=== PATIENT | female | born 1980 | race African-American/Black ===

== ENCOUNTER 2020-04-14 08:45 | Outpatient (CLI) | payer BC, SELFPAY ==
--- NOTE | 2020-04-14 09:03 | ECG_ITS ---
Measurements Intervals Siren Rate: 79 P: 13 AL: 138 QRS: -9 QRSD: 98 T: 4 QT: 390 QTc: 448 Interpretive Statements SINUS RHYTHM VOLTAGE CRITERIA FOR LVH BORDERLINE T WAVE ABNORMALITY- INFERIOR LEADS BORDERLINE ECG Electronically Signed On 04-14-2020 13:13:19 CDT by Rene Murguia D.O.
[2020-04-14 09:27] LABS: Blood Urea Nitrogen 9 mg/dL (7-17); Calcium 8.7 mg/dL (8.4-10.2); Carbon Dioxide 26 mmol/L (22-30); Chloride 103 mmol/L (98-107); Estimated Glomerular Filt Rate > 60; Glucose 130 mg/dL (65-105); Potassium 3.8 mmol/L (3.4-5.0); Sodium 136 mmol/L (137-145)
== END 2020-04-14 08:46 | disposition home or self-care (01) ==
PROVIDERS: PCP Internal Medicine; Visit Provider Anesthesiology
DX: E11.9 Type 2 diabetes mellitus without complications (principal)
CPT/HCPCS: 36415; 80048; 93005

== ENCOUNTER 2020-04-24 00:50 | Outpatient (CLI) | payer BC, SELFPAY ==
[2020-04-24 19:16] LABS: SARS-CoV-2 RNA PCR Negative
== END 2020-04-24 00:51 | disposition home or self-care (01) ==
LOC: ANHCOVIDDT 00:51
PROVIDERS: PCP Internal Medicine; Visit Provider Surgery Plastic and Reconstructive Surgery
DX: Z01.818 Encounter for other preprocedural examination (principal); Z11.59 Encounter for screening for other viral diseases
CPT/HCPCS: 87635; C9803; U0003

== ENCOUNTER 2020-04-26 01:15 | Day surgery (SDC) | payer BC, SELFPAY ==
[2020-04-13 12:25] VITALS: BMI 36.8
--- NOTE | 2020-04-25 14:08 | WPDANESEPP ---
Anes - Eval Pre Procedure Procedure: Operation Date: 04/26/20 07:30 Proposed Procedures p Bilateral Breast Reduction - Dakota Farrell MD Date/Time: 04/25/20 14:08 Pre Op Diagnosis: macromastia Patient Data Age: 39 Gender: F Height: 5 ft 3 in Weight: 94.35 kg Allergies Allergy/AdvReac Type Severity Reaction Status Date / Time egg Allergy Unknown Itching Verified 04/13/20 12:25 Home Medications Medication Instructions Recorded Confirmed Type lisinopril 5 mg PO DAILY 10/02/19 04/13/20 History metformin 500 mg PO BID 10/02/19 04/13/20 History omeprazole 20 mg PO DAILY PRN 10/02/19 04/13/20 History hydrocodone 5 mg-acetaminophen 325 1 tablet PO Q6H PRN #15 tablet 04/18/20 04/18/20 Rx mg tablet ondansetron HCl 4 mg tablet 4 mg PO Q6H PRN #30 tablet 04/18/20 Rx Patient hx anesthesia problems: none Family hx anesthesia problems: none PMFSH Past Medical History Medical History (Updated 04/25/20 @ 14:09 by Kun Kincaid CRNA) Chronic back pain Chronic neck pain Hypertension Intertrigo Macromastia Obesity Type 2 diabetes mellitus Surgical History Surgical History H/O dilation and curettage Social History Social History Smoking status: Never smoker Alcohol intake: never Gender identity (if verbalized by the patient): Female Comments VR 79 SINUS RHYTHM VOLTAGE CRITERIA FOR LVH BORDERLINE T WAVE ABNORMALITY- INFERIOR LEADS BORDERLINE ECG Exam Day of Procedure 04/25/20 14:08 Patient weight: obese
[2020-04-26] VITALS (11 sets, daily range): BP systolic 101–138; BP diastolic 62–91; PULSE 76–98; RESP 14–18; TEMP 35.9–37; O2SAT 95–100
[2020-04-26] MEDS: LACTATED RINGERS 1,000 ML 30 ML IV CONT ×2 (06:45→10:19)
[2020-04-26 06:48] LABS: Glucose Point of Care 177 (65-105)
--- NOTE | 2020-04-26 06:49 | WPDHPUPDATE1 ---
History and Physical Update Update Date/Time: 04/26/20 06:49 History and Physical has been reviewed, including an updated exam of the patient. There are NO changes in the patient's condition. Risks, benefits, and alternatives have been discussed and questions answered. Patient agrees to proceed with procedure.
--- NOTE | 2020-04-26 06:50 | WPDANESEPPF ---
Anes - Initial Pre Proc Eval Procedure: Operation Date: 04/26/20 07:30 Proposed Procedures p Bilateral Breast Reduction - Dakota Farrell MD Date/Time: 04/26/20 06:50 Surgeon: Dakota Farrell MD Pre Op Diagnosis: macromastia Patient Data Age: 39 Gender: F Height: 5 ft 3 in Weight: 94.35 kg Allergies Allergy/AdvReac Type Severity Reaction Status Date / Time egg Allergy Unknown Itching Verified 04/13/20 12:25 Home Medications Medication Instructions Recorded Confirmed Type lisinopril 5 mg PO DAILY 10/02/19 04/13/20 History metformin 500 mg PO BID 10/02/19 04/13/20 History omeprazole 20 mg PO DAILY PRN 10/02/19 04/13/20 History hydrocodone 5 mg-acetaminophen 325 1 tablet PO Q6H PRN #15 tablet 04/18/20 04/18/20 Rx mg tablet ondansetron HCl 4 mg tablet 4 mg PO Q6H PRN #30 tablet 04/18/20 Rx Laboratory Tests 04/26/20 04/26/20 06:20 06:45 POC Capillary Glucose 177 mg/dl H mg/dl (65-105) Cotinine Pending Patient hx anesthesia problems: none Family hx anesthesia problems: none PMFSH Past Medical History Medical History Chronic back pain Chronic neck pain Hypertension Intertrigo Macromastia Obesity Type 2 diabetes mellitus Surgical History Surgical History H/O dilation and curettage Social History Social History Smoking status: Never smoker Alcohol intake: never Gender identity (if verbalized by the patient): Female Anes - Eval Final PreProcedure Day of Procedure 04/26/20 06:50 Patient weight: morbidly obese Heart: regular rate and rhythm Lungs: clear to auscultation Airway: Mallampati scale class II Neurological: alert and oriented Last oral intake: >/= 8 hours ASA classification: III Emergent: no Anesthetic plan: proceed Anesthesia type and monitoring: general ETT and standard monitoring Informed Consent: The patient's anesthetic plan and its attendant risks and benefits were discussed with the patient/family/POA. Questions were solicited and answers provided to the satisfaction of the patient/family/POA.
[2020-04-26 06:51] LABS: Urine Cotinine NEGATIVE
[2020-04-26] MEDS: ceFAZolin 2 GM/D5W 50 ML 2 GM/50 ML BAG IVPB (07:26)
--- NOTE | 2020-04-26 10:25 | PM.PROC ---
Procedure Note - Detailed Date of procedure: 04/26/20 Pre-op diagnosis: macromastia Post-op diagnosis: same Procedure performed: Bilateral breast reduction Description of procedure: She is here today for bilateral breast reduction. Previously and again today the risks, benefits, alternatives were discussed in extensive detail. I wanted her to be very realistic about the risks involved as well as expectations. We discussed aftercare and what to monitor for. She understands we can never guarantee final breast size and there will always be asymmetry. I was very upfront and honest about the risks of sensation change and even nipple loss (). Made sure answered all of her questions to her satisfaction today and consent was obtained. She was marked in the preoperative holding area with their verification. The patient was taken to the operating room placed supine on the operating table. Anesthesia was provided by anesthesiology. She was prepped and draped in a standard sterile fashion. A surgical time-out was taken. Stab incisions were made and I tumessed with a tumescent solution. I marked out the nipple-areolar complex at 42 mm. I then de-epithelialized the pedicle. The pedicle was well left well more than 2 cm in thickness. I then removed the inferior portion of the breast as well as the central keel to get shape based on preoperative planning. At this point copiously irrigated with saline solution and verified a strict hemostasis. I reapproximated the pillars using a 2-0 PDS as well as along the IMF. I tailor tacked the breast into place with maría. Laterally she had slight asymmetry which was treated with 4mm basket cannula using S.A.F.E. technique with suction lipectomy. This was minimal volume. She was placed in a sitting position. I verified the nipple-areolar complex position based on preoperative markings, intraoperative measurements, and observation which were in full agreement. This nipple-areolar complex was marked at 42 mm in size. I then placed supine and de-epithelialized this. Nipple-areolar complex was inset with 3-0 Monocryl. I closed the vertical incision with 3-0 Monocryl in the IMF with 3-0 stratafix. Then everything was closed using a running subcuticular 4-0 Monocryl followed by Steri-Strips. A dressing was placed followed by surgical bra. Patient was awoke and taken to PACU without difficulty. All instrument sponge counts were correct at the end of the case. Anesthesia: GLMA Surgeon: Dakota Farrell MD Estimated blood loss (mL): 20 Drains: No Packing: No Pathology: yes Complications: No immediate complications Condition: stable Disposition: PACU Findings: Bilateral inverted T reduction mammaplasty. Superior medial pedicle. Tissue removed- R: 968.2 grams L: 1276.3 grams
[2020-04-26 10:35] LABS: Glucose Point of Care 190 (65-105)
--- NOTE | 2020-04-26 10:56 | SUR.PREOP ---
0730: PT TEXTED MOTHER TO MAKE AWARE SHE IS GOING INTO SURGERY
== END 2020-04-26 13:00 | disposition home or self-care (01) ==
PROVIDERS: PCP Internal Medicine; Visit Provider Surgery Plastic and Reconstructive Surgery
PROC: 0HBV0ZZ Excision of Bilateral Breast, Open Approach (ICD-10-PCS; CPT 19318; principal; 2020-04-26 07:30)
DX: N62 Hypertrophy of breast (principal); N60.12 Diffuse cystic mastopathy of left breast; N60.11 Diffuse cystic mastopathy of right breast; I10 Essential (primary) hypertension; E11.9 Type 2 diabetes mellitus without complications; E66.9 Obesity, unspecified; Z68.36 Body mass index [BMI] 36.0-36.9, adult; Z79.84 Long term (current) use of oral hypoglycemic drugs; Z79.899 Other long term (current) drug therapy
CPT/HCPCS: 19318; 36415; 80307; 87635; 88305; A9270; C9803; J0131; J0171; J0690; J1100; J1170; J2250; J2370; J2405; J2704; J2710; J3010; J7120; U0003

== ENCOUNTER 2021-02-15 08:05 | Outpatient (CLI) | payer BC, SELFPAY ==
--- NOTE | ~2021-02-15 | US_ITS ---
EXAMINATION: US pelvic complete w TV DATE: 02/15/2021 09:03 INDICATION: Pelvic pain Comparison:No prior studies for comparison. TECHNIQUE: Multiple transabdominal and endovaginal sonographic images of the pelvis performed. FINDINGS: The uterus measures 10.6 x 2.9 x 5 cm. There is a hypoechoic mass posterior margin of the u terus measuring 2.7 x 1.9 x 2.3 cm, compatible with fibroid. The endometrial complex measures 7 mm. The right ovary measures 4.3 x 2.9 x 3.9 cm and the left ovary measures 3.3 x 2.9 x 3.2 cm. There ar e small follicles in each ovary. Normal doppler signal in both ovaries. There is no free fluid in the pelvis. There are no abnormal masses seen on either side. IMPRESSION: 1. Hypoechoic uterine mass posteriorly measuring up to 2.7 cm, compatible with fibroid. Reviewed, dictated and finalized at location B.
--- NOTE | ~2021-02-15 | US_ITS ---
US right upper quadrant INDICATION: Elevated liver enzymes. Abdomen pain. PROCEDURE: Realtime right upper abdominal ultrasound. COMPARISON: No prior studies for comparison. FINDINGS: The pancreas is normal without focal mass or pancreatic ductal dilation. Liver echotexture is increased, consistent with fatty infiltration. There is normal directional flow in the portal ve in. The gallbladder is normal without stones, gallbladder wall thickening or pericholecystic fluid. Comm on bile duct measures 3 mm. No sonographic Mcmillan's sign. IMPRESSION: 1: Hepatic steatosis. Reviewed, dictated and finalized at location B. IMPRESSION: 1: Hepatic steatosis.
--- NOTE | ~2021-02-15 | US_ITS ---
EXAMINATION: US thyroid DATE: 02/15/2021 09:03 INDICATION: Thyroid nodule. TECHNIQUE: Multiple ultrasound images of the thyroid were obtained. COMPARISON: None. FINDINGS: The right thyroid lobe measures 7.0 x 1.8 x 1.8 cm. The left thyroid lobe measures 5.6 x 2.1 x 2.0 c m. In the left thyroid lobe, there is a 2.1 cm solid, hypoechoic, [id number]-[id number] nodule with smooth margin without echogenic foci (TI-RADS TR4). In the left thyroid lobe, there is a 10 mm solid, hypoe choic, gqnyc-uvak-[id number] nodule with ill-defined margin without echogenic foci (TR4). IMPRESSION: 1. Left thyroid nodules. By report, the patient has been imaged elsewhere with a previous benign biop sy. Comparison with prior imaging is recommended. Ultrasound-guided fine-needle aspiration of the 2.1 cm nodule is recommended unless it is stable from the time of prior biopsy. Follow up ultrasound of the 10 mm nodule in one year is recommended unless it has been stable for 5 years. Reviewed, dictated and finalized at location A. IMPRESSION: 1. Left thyroid nodules. By report, the patient has been imaged elsewhere with a previous benign biopsy. Comparison with prior imaging is recommended. Ultraso und-guided fine-needle aspiration of the 2.1 cm nodule is recommended unless it is stable from the time of prior biopsy. Follow up ultrasound of the 10 mm nod ule in one year is recommended unless it has been stable for 5 years.
== END 2021-02-15 08:06 ==
PROVIDERS: PCP Internal Medicine; Visit Provider Internal Medicine
DX: R74.8 Abnormal levels of other serum enzymes (principal); R10.2 Pelvic and perineal pain; E04.2 Nontoxic multinodular goiter; K76.0 Fatty (change of) liver, not elsewhere classified
CPT/HCPCS: 76536; 76705; 76830; 76856

== ENCOUNTER 2021-03-25 13:09 | Outpatient (CLI) | payer BC, SELFPAY ==
--- NOTE | ~2021-03-25 | US_ITS ---
EXAMINATION: US FNA w image guidance DATE: 03/25/2021 14:00 INDICATION: Left thyroid nodule. TECHNIQUE: The procedure and its benefits and risks were discussed with the patient. Risks specifically discusse d included bleeding. The patient verbalized understanding of the risks and agreed to proceed. The nec k was prepped and draped in the usual sterile manner. 1% lidocaine was used for local anesthesia. 5 passes were made with a 25G needle into the lesion under ultrasound guidance. There were no immedia te complications. The patient understood to call the ordering physician for results after a week and a half and verbalized that understanding. FINDINGS: Grayscale ultrasound images demonstrate needles advanced into a 1.8 cm left thyroid nodule for biopsy . IMPRESSION: 1. Ultrasound-guided fine needle aspiration of a left thyroid nodule. Reviewed, dictated and finalized at location A.
== END 2021-03-25 13:10 | disposition home or self-care (01) ==
PROVIDERS: PCP Internal Medicine; Visit Provider Otolaryngology
DX: E04.1 Nontoxic single thyroid nodule (principal)
CPT/HCPCS: 10005; 88173; 88305

== ENCOUNTER 2021-09-21 03:01 | Emergency (ER) | payer BC, SELFPAY ==
[2021-09-21 03:11] VITALS: BP 192/111; PULSE 118; RESP 18; TEMP 35.8; O2SAT 100
[2021-09-21 06:39] LABS: Add Urine Microscopic? YES; Appearance Urine Cloudy (Clear); Bacteria Urine Trace /hpf; Bilirubin Urine Negative (Negative); Blood Urine 1+ (Negative); Color Urine Yellow (Yellow); Glucose Urine UA 3+ mg/dL (Negative); Ketones Urine Trace mg/dL (Negative); Leukocyte Esterase Ur 2+ LEU/UL (Negative); Mucus Urine Rare /lpf; Nitrate Urine Negative (Negative); Protein Urine Negative (Negative); Squamous Epithelial Cell Urine Many /hpf (Few); Urobilinogen Urine Negative mg/dL (<2.0); WBC Urine 16-20 /hpf
--- NOTE | 2021-09-21 06:39 | ED.FEMALEGU ---
HPI - Female Genitourinary General Chief complaint: Urogenital-Female Stated complaint: urinary symptoms Time Seen by Provider: 09/21/21 05:14 Source: patient History of Present Illness HPI Narrative: Patient presents with vaginal itching and irritation. Symptoms been present for the past 2 days getting progressively worse. Reports similar episode approximately 1 year ago was given a cream and they resolve the issue. She denies new sexual partner she denies recent antibiotics. She denies any urinary symptoms at the time of my evaluation she denies any abdominal pain diarrhea, nausea, vomiting, fevers. Related Data Home Medications Medication Instructions Recorded Confirmed lisinopril 5 mg PO DAILY 10/02/19 04/26/20 metformin 500 mg PO BID 10/02/19 04/26/20 omeprazole 20 mg PO DAILY PRN 10/02/19 04/26/20 Allergies Allergy/AdvReac Type Severity Reaction Status Date / Time egg Allergy Unknown Itching Verified 09/21/21 04:59 Review of Systems Review of Systems: CONSTITUTIONAL: Denies fever, chills, or sweats. EYES: Denies visual changes, redness, or discharge. ENT: Denies rhinorrhea, congestion, sore throat, or otalgia. CARDIOVASCULAR: Denies chest pain, palpitations, or edema. RESPIRATORY: Denies cough or dyspnea. GASTROINTESTINAL: Denies abdominal pain, nausea, vomiting, or diarrhea. GENITOURINARY: Denies dysuria or hematuria. SKIN: Denies rash or itching. MUSCULOSKELETAL: Denies back pain, joint pain, or myalgia. NEUROLOGIC: Denies headache, numbness, dizziness, or weakness. PSYCHIATRIC: Denies anxiety or depression. All systems reviewed & are unremarkable except as noted in HPI and below PMFSH Past Medical History Medical History (Updated 09/21/21 @ 06:45 by Freddie Cho MD) Chronic back pain Chronic neck pain Hypertension Intertrigo Macromastia Obesity Type 2 diabetes mellitus Surgical History Surgical History H/O dilation and curettage Social History Social History Smoking status: Never smoker Alcohol intake: never Gender identity (if verbalized by the patient): Female Exam Narrative: GENERAL: Well-appearing, well-nourished, and in no acute distress. HEAD: Normocephalic, atraumatic. EYES: PERRLA and EOMI. ENT: Nares clear, no rhinorrhea or epistaxis. Mucous membranes moist. NECK: Supple. No masses. No JVD CHEST: Clear to auscultation. No respiratory distress. No wheezes rales or rhonchi HEART: Regular rate and rhythm. No murmur heard. Normal peripheral pulses. ABDOMEN: Soft, nontender, nondistended, normal active bowel sounds. 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 Speculum exam with moderate white thick discharge EXTREMITIES: Normal range of motion. No edema. SKIN: Warm, dry, no rash. NEURO: No focal deficits. Alert and oriented x3. PSYCH: Normal mood and affect. Course Vital Signs Vital signs: Vital Signs Temperature 35.8 C L 09/21/21 03:11 Pulse Rate 118 H 09/21/21 03:11 Respiratory Rate 18 09/21/21 03:11 Blood Pressure 192/111 H 09/21/21 03:11 Pulse Oximetry 100 09/21/21 03:11 Temperature 35.8 C L 09/21/21 03:11 Pulse Rate 83 09/21/21 06:57 Respiratory Rate 16 09/21/21 06:57 Blood Pressure 133/99 H 09/21/21 06:57 Pulse Oximetry 100 09/21/21 06:57 MDM - Female Genitourinary MDM Narrative Medical decision making narrative: H&P as above, vss, pt looks clinically well, exam with moderate vaginal discharge, labs with UA contaminated additional labs pending,additional labs/img considered, symptomatic relief available as needed, on reevaluation pt continues to looks clinically well. Suspect either bacterial vaginosis or yeast infection based on exam, dns gonorrhea, committee, necrotizing soft tissue infection. UA was dirty however is likel
[2021-09-21 06:40] LABS: Specific Grav Ur 1.039 (1.001-1.035)
[2021-09-21 06:57] VITALS: BP 133/99; PULSE 83; RESP 16; O2SAT 100
== END 2021-09-21 06:58 | disposition home or self-care (01) ==
PROVIDERS: Emergency Provider Emergency Medicine; PCP Internal Medicine
DX: N89.8 Other specified noninflammatory disorders of vagina (principal); E11.9 Type 2 diabetes mellitus without complications; I10 Essential (primary) hypertension; E66.9 Obesity, unspecified; Z68.34 Body mass index [BMI] 34.0-34.9, adult; Z79.84 Long term (current) use of oral hypoglycemic drugs
CPT/HCPCS: 81001; 81025; 87070; 87077; 87086; 87088; 87491; 87591; 87808; 99284

== ENCOUNTER 2022-09-12 11:12 | Emergency (ER) | payer BC, OTHER, SELFPAY ==
--- NOTE | ~2022-09-12 | CT_ITS ---
EXAMINATION: CT abdomen pelvis w con DATE: 09/12/2022 15:59 INDICATION: Abnormal fibroid on ultrasound TECHNIQUE: Computed tomography (CT) of the abdomen and pelvis was performed with 100 mL Omnipaque-350 intravenous contrast. Automated exposure control and iterative reconstruction technique were employe d. The dose-length product was 601.44 mGy-cm. COMPARISON: Ultrasound dated 09/12/2022 FINDINGS: Lung bases are clear. Heart size is normal. No pericardial or pleural effusion. Liver, gallbladder, p ancreas, spleen, bilateral adrenal glands and kidneys are normal. Bowels including the appendix are n ormal. Small fat-containing umbilical hernia. 5.1 x 3.3 x 3.5 cm heterogeneously enhancing subserosal fibroid arising from the posterior body of the uterus. 2.2 cm right ovarian cyst/follicle. Partially decompressed bladder is unremarkable. No free intraperitoneal gas or fluid. No pathologically enlarg ed abdominal or pelvic lymphadenopathy. 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 IMPRESSION: 1. No acute intra-abdominal/pelvic process. 2. 5.1 x 3.3 x 3.5 cm subserosal fibroid arising from the posterior body of the uterus. Reviewed, dictated and finalized at location A. 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
--- NOTE | ~2022-09-12 | US_ITS ---
US pelvic complete w TV DATE: 09/12/2022 13:57 INDICATION: Pelvic pain. Hematuria versus vaginal bleeding. TECHNIQUE: Real-time imaging via transabdominal and transvaginal approaches COMPARISON: 02/15/2021 pelvic ultrasound examination FINDINGS: The uterus measures approximately 9.2 cm height, 4.2 cm AP and 5.2 cm transverse dimension. Central endometrial echo measures up to 11 mm AP dimension. There is a heterogeneous circumscribed mass at the posterior aspect of the body of the uterus, measur ing up to 5.3 x 2.9 x 2.7 cm, which may be a serosal fibroid. Consider CT abdomen pelvis for more opt imal evaluation. Cervical nabothian cysts are noted, measuring up to 7 x 7 mm. Right ovary measures 4.2 x 3.8 x 4.2 cm, with vascular flow. There is a 1.6 x 2.[address] ovarian [address]. Left ovary measures 3.8 x 2.8 x 3.9 cm, with vascular flow. No free pelvic fluid collection is detected. IMPRESSION: Circumscribed mass in posterior aspect of body of uterus measuring up to 5.3 x 2.9 x 2.7 cm, possibly a serosal fibroid. This is increased in size compared to. Consider CT abdomen pe lvis for further evaluation Central endometrial echo complex measures up to 11 mm AP dimension 1.6 x 2.5 cm right ovarian cyst Reviewed, dictated and finalized at Location A. Reviewed, dictated and finalized at location A. IMPRESSION: Circumscribed mass in posterior aspect of body of uterus measuring up to 5.3 x 2.9 x 2.7 cm, possibly a serosal fibroid. This is increased in size compared to. Consider CT abdomen pelvis for further evaluation Central endometrial echo complex measures up to 11 mm AP dimension 1.6 x 2.5 cm right ovarian cyst
[2022-09-12 11:37] VITALS: BP 137/97; PULSE 103; RESP 18; TEMP 36.6; O2SAT 100
[2022-09-12 12:10] LABS: Add Urine Microscopic? YES; Appearance Urine Cloudy (Clear); Blood Urine 3+ (Negative); Color Urine Red (Yellow); Leukocyte Esterase Ur 3+ LEU/UL (Negative); Nitrate Urine Unable to determine (Negative); Protein Urine 3+ mg/dL (Negative)
[2022-09-12 12:11] LABS: Bacteria Urine Unable to determine /hpf; Bilirubin Urine Unable to determine (Negative); Glucose Urine UA Unable to determine mg/dL (Negative); Ketones Urine Unable to determine mg/dL (Negative); RBC Urine >75 /hpf (0-2); Squamous Epithelial Cell Urine Unable to determine /hpf (Few); Urobilinogen Urine Unable to determine mg/dL (<2.0); WBC Urine >75 /hpf
--- NOTE | 2022-09-12 13:08 | ED.FEMALEGU ---
HPI - Female Genitourinary General Chief complaint: Urogenital-Female Stated complaint: pelvic pain, UTI? Time Seen by Provider: 09/12/22 12:56 History of Present Illness HPI Narrative: Patient is a 41-year-old female here for evaluation of pelvic pain and hematuria for the past day. Patient states he woke up with a burning discomfort in her lower abdomen, worse with urination. She has also noted large amount of blood in her urine but is unsure if this point from her vagina or her urethra. She did just come off of her menstrual cycle 2 weeks ago prior. Patient denies any back pain, fevers, chills, nausea, vomiting. She has not taken any medicine for her pain. She does have a history of uterine fibroids. Denies known exposures to STIs or STDs. Related Data Home Medications Medication Instructions Recorded Confirmed lisinopril 5 mg tablet 5 mg PO DAILY 10/02/19 04/26/20 metformin 500 mg tablet,extended 500 mg PO BID 10/02/19 04/26/20 release 24 hr omeprazole 20 mg capsule,delayed 20 mg PO DAILY PRN Acid Reflux 10/02/19 04/26/20 release Allergies Allergy/AdvReac Type Severity Reaction Status Date / Time egg Allergy Unknown Itching Verified 09/12/22 11:37 [facility] Past Medical History Medical History (Updated 09/12/22 @ 16:34 by Aracely Rangel PA-C) Chronic back pain Chronic neck pain Hypertension Intertrigo Macromastia Obesity Type 2 diabetes mellitus Surgical History Surgical History H/O dilation and curettage Social History Social History Smoking status: Never smoker Alcohol intake: never Gender identity (if verbalized by the patient): Female Exam Narrative: APPEARANCE: Well appearing, no pain in distress, well-nourished. Head: Normocephalic and atraumatic. EYES: PERRLA/EOMI, conjunctivae clear NOSE: No nasal drainage EARS: External ear normal in appearance THROAT: Oropharynx is clear. Mucous membranes are moist. NECK: Supple. No adenopathy, no masses. RESPIRATORY: Airway patent, respirations nonlabored. Clear to auscultation bilaterally, no rales, rhonchi, wheezing. CARDIOVASCULAR: Regular rate and rhythm without murmurs, rubs, or gallops. ABDOMINAL: Normoactive bowel sounds. Soft, nontender, nondistended. No rebound tenderness or guarding. MUSCULOSKELETAL: Extremities are warm and well-perfused. Moves all extremities well. No edema. NEURO: Normal speech. No focal neurologic deficits. SKIN: Skin is warm and dry. No rashes. PSYCHIATRIC: Normal affect/mood.. Course Vital Signs Vital signs: Vital Signs Temperature 97.9 F 09/12/22 11:37 Pulse Rate 103 H 09/12/22 11:37 Respiratory Rate 18 09/12/22 11:37 Blood Pressure 137/97 H 09/12/22 11:37 Pulse Oximetry 100 09/12/22 11:37 Temperature 97.9 F 09/12/22 11:37 Pulse Rate 103 H 09/12/22 11:37 Respiratory Rate 18 09/12/22 11:37 Blood Pressure 137/97 H 09/12/22 11:37 Pulse Oximetry 100 09/12/22 11:37 MDM - Female Genitourinary MDM Narrative Medical decision making narrative: 41-year-old female here for evaluation of vaginal bleeding and dysuria over the past day. Patient is nontoxic-appearing, and has suprapubic tenderness on exam. White count is 10.1. UA with large amounts of blood and evidence of infection with upper 75 white blood cells. Hemoglobin hematocrit normal. hCG is negative. Ultrasound reveals a fibroid, seen on previous views but has grown in size. CT scan confirms finding of the fibroid and shows no other acute process. Patient was feeling improved after Tylenol and Toradol. 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 Return precautions discussed and she voiced understanding. Lab Data Result diagrams: 09/12/22 14:54 09/12/22 14:54 Labs: Lab Results 09/12/22 09/12/22 09/12/22 Range/
[2022-09-12 15:01] LABS: Basophils Percent Auto 0.3 % (0.2-1.2); Eosinophils Absolute Auto 0.1 K/mm3 (0-0.3); Eosinophils Percent Auto 0.5 % (0-4.4); Hematocrit 39.2 % (37.0-47.0); Hemoglobin 13.5 g/dL (12.0-15.0); Immature Granulocyte Absolute 0.03 K/mm3 (0.00-0.031); Immature Granulocyte Percent A 0.3 % (0-0.5); Lymphocytes Absolute Auto 2.67 K/mm3 (0.9-3.2); Lymphocytes Percent Auto 26.5 % (18.3-44.2); Mean Corpuscular HGB Conc 34.4 g/dl (32-36); Mean Corpuscular Hemoglobin 31.8 pg (26-34); Mean Corpuscular Volume 92.2 fl (80-100); Mean Platelet Volume 10.2 fl (7.4-10.4); Monocytes Absolute Auto 0.6 K/mm3 (0.1-0.6); Monocytes Percent Auto 5.6 % (2.6-8.5); Neutrophils Absolute Auto 6.7 K/mm3 (1.3-6.7); Neutrophils Percent Auto 66.8 % (45.5-73.1); Platelet Count Result 278 k/mm3 (150-375); Red Blood Count 4.25 M/mm3 (4.2-5.4); Red Cell Distribution Width 12.3 % (11.5-14.5); White Blood Count 10.1 K/mm3 (4.5-10.0)
[2022-09-12 15:15] LABS: Alanine Aminotransferase 69 U/L (6-35); Albumin Level 4.4 g/dL (3.5-5.1); Alkaline Phosphatase 71 U/L (38-126); Anion Gap 9 mmol/L (8-16); Aspartate Amino Transferase 47 U/L (14-36); Bilirubin,Total 0.4 mg/dL (0.2-1.3); Blood Urea Nitrogen 11 mg/dL (7-17); Calcium 9.4 mg/dL (8.4-10.2); Carbon Dioxide 25 mmol/L (22-30); Chloride 102 mmol/L (98-107); Estimated CRCL calculation 110 ml/min; Estimated Glomerular Filt Rate > 60; Glucose 134 mg/dL (65-110); Potassium 4.1 mmol/L (3.4-5.0); Sodium 136 mmol/L (137-145)
[2022-09-12 15:31] LABS: Beta HCG Quantitative < 2.39 mIU/ML
[2022-09-12] MEDS: KETOROLAC 15 MG/ML VIAL (*BKC) IV PUSH (17:11)
== END 2022-09-12 17:15 | disposition home or self-care (01) ==
PROVIDERS: General Practice; Emergency Provider Physician Assistant; PCP Internal Medicine
DX: N39.0 Urinary tract infection, site not specified (principal); D25.9 Leiomyoma of uterus, unspecified; I10 Essential (primary) hypertension; E11.9 Type 2 diabetes mellitus without complications; E66.9 Obesity, unspecified; Z68.35 Body mass index [BMI] 35.0-35.9, adult; Z79.84 Long term (current) use of oral hypoglycemic drugs
CPT/HCPCS: 36415; 74177; 76830; 76856; 80053; 81001; 84702; 85025; 87077; 87086; 87186; 96365; 96375; 99284; J0131; J1885; Q9967

== ENCOUNTER 2022-10-02 11:45 | Outpatient (CLI) | payer BC, OTHER, SELFPAY ==
--- NOTE | ~2022-10-02 | XR_ITS ---
EXAMINATION: XR hysterosalpingogram INDICATION: Infertility TECHNIQUE: Hysterosalpingogram was performed by Dr. Beto Marquez MD with fluoroscopic guidanc belia Macedo was present to obtain fluoroscopic images. Fluoroscopy exposure time was 0.3 minutes. The DAP fo r this procedure was 3.921 Gycm2. FINDINGS: Spiral Binder radiograph demonstrates an unremarkable pelvis. Fluoroscopic images demonstrate a no rmal appearing endometrial cavity which has been cannulated. Upon injection of contrast, both fallopi an tubes opacify and are normal in appearance. There is free spillage bilaterally. Uterus is without evidence of synechia. IMPRESSION: Patent fallopian tubes. Reviewed, dictated and finalized at location A. 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
== END 2022-10-02 11:46 | disposition home or self-care (01) ==
PROVIDERS: PCP Internal Medicine; Visit Provider Obstetrics & Gynecology
DX: N97.9 Female infertility, unspecified (principal)
CPT/HCPCS: 58340; 74740; Q9966

== ENCOUNTER 2022-10-02 15:45 | Outpatient (CLI) | payer BC, OTHER, SELFPAY ==
--- NOTE | ~2022-10-02 | US_ITS ---
Thyroid ultrasound. Clinical History: Nontoxic thyroid nodule Findings: Real-time sonography of the thyroid gland was performed. The right lobe measures 6.4 x 1.7 x 1.8 cm. The left lobe measures 5.0 x 2.4 x 2.0 cm. The isthmus is 4 mm in AP diameter. There is a 2.4 x 1.3 x 2.0 cm hypoechoic solid, wider than tall nodule at the left midpole. Borders a re circumscribed. There is an additional very ill-defined 1.1 x 0.9 x 1.3 cm nodule in the posterior left mid to lower pole. This is essentially isoechoic with poorly delineated borders. There is a 0.3 cm hypoechoic nodule in the right lower pole. Impression: Thyroid nodules, as detailed above. Largest nodule is consistent with a TR-4 nodule, and FNA is recom mended based on size to establish a histologic diagnosis.. Reviewed, dictated and finalized at location [] ESS TECH Impression: Thyroid nodules, as detailed above. Largest nodule is consistent with a TR-4 no dule, and FNA is recommended based on size to establish a histologic diagnosis. .
== END 2022-10-02 15:46 ==
LOC: MICIMG 15:46
PROVIDERS: PCP Internal Medicine; Visit Provider Internal Medicine
DX: E04.1 Nontoxic single thyroid nodule (principal)
CPT/HCPCS: 76536

== ENCOUNTER 2023-07-20 15:49 | Outpatient (CLI) | payer BC, SELFPAY ==
--- NOTE | ~2023-07-20 | MR_ITS ---
MRI of the right ankle Clinical history: Achilles tendinitis Technique: Coronal proton-density and proton-density fat-sat images, axial proton-density and proton- density fat-sat images, and sagittal proton-density and proton-density fat-sat images were acquired. Findings: Syndesmotic ligaments are intact. Anterior and posterior talofibular ligaments, and calcane ofibular ligament appear intact. Deltoid ligament is intact. Medial flexor tendons, peroneal tendons, and anterior extensor tendons are intact. There is a linear low-grade interstitial tear within the distal Achilles tendon, with minimal distal tendinosis. No hig h-grade partial or full-thickness tear. Small plantar calcaneal spur noted. No osteochondral lesion of the talar dome. Joint spaces are prese rved. Bone marrow signals are unremarkable. Plantar fascia is intact. Normal signal preserved in the sinus Tarsi. No soft tissue mass or fluid co llection evident. Impression: Linear low-grade interstitial tear within the distal Achilles tendon. No high-grade partial or full-t hickness tear. Superimposed minimal distal Achilles tendinosis. Reviewed, dictated and finalized at location . Impression: Linear low-grade interstitial tear within the distal Achilles tendon. No high-g rade partial or full-thickness tear. Superimposed minimal distal Achilles tendinosis.
== END 2023-07-20 15:50 ==
LOC: MICIMG 15:55
PROVIDERS: PCP Podiatrist Foot & Ankle Surgery; Visit Provider Podiatrist Foot & Ankle Surgery
DX: M76.61 Achilles tendinitis, right leg (principal)
CPT/HCPCS: 73721